=== PATIENT | female | born 1970 | race Caucasian/White ===

== ENCOUNTER 2024-02-01 04:32 | Emergency (ER) | payer SELFPAY ==
[~2024-02-01] VITALS: Ht 144.8 cm; Wt 70.5 kg
[2024-02-01 04:34] VITALS: TEMP 97.9
[2024-02-01] MEDS ORDERED: Morphine 4 MG/ML VIAL IV PRN (05:00)
[2024-02-01] MEDS ORDERED: Ondansetron 4 MG/2 ML VIAL IV ONE (05:00)
[2024-02-01 07:44] VITALS: BP 132/83
[2024-02-01 08:39] VITALS: PULSE 105
== END 2024-02-01 08:39 | disposition short-term general hospital (02) ==
LOC: COL.ER 04:32
DX: S09.90XA Unspecified injury of head, initial encounter (principal); S12.690A Other displaced fracture of seventh cervical vertebra, initial encounter for closed fracture; S22.010A Wedge compression fracture of first thoracic vertebra, initial encounter for closed fracture; S22.020A Wedge compression fracture of second thoracic vertebra, initial encounter for closed fracture; S22.030A Wedge compression fracture of third thoracic vertebra, initial encounter for closed fracture; S22.040A Wedge compression fracture of fourth thoracic vertebra, initial encounter for closed fracture; S22.050A Wedge compression fracture of T5-T6 vertebra, initial encounter for closed fracture; S01.01XA Laceration without foreign body of scalp, initial encounter; Z23 Encounter for immunization; W20.8XXA Other cause of strike by thrown, projected or falling object, initial encounter; Y92.833 Campsite as the place of occurrence of the external cause
CPT/HCPCS: J2270; J2405